=== PATIENT | male | born 1945 | race Caucasian/White ===

== ENCOUNTER → 2016-12-28 | Outpatient (CLI) | payer MEDICARE, OTHER ==
--- NOTE | 2016-12-28 12:10 | RADRPT ---
PROCEDURE: XR pelvis/right hip. CLINICAL INDICATION: Hip pain TECHNIQUE: AP pelvis/AP and lateral right hip views performed. COMPARISON: 08/17/2014 FINDINGS: There is a right total hip replacement. There is no evidence of loosening of the prosthesis. No hard hillman failure is identified. There is severe left hip osteoarthrosis. This is associated with joint space narrowing, subchondral sclerosis, subchondral cyst formation and osteophytosis. There is normal osseous mineralization. N o fractures or osseous lesions are identified. The soft tissues are unremarkable. IMPRESSION: Right total hip replacement. Severe left hip osteoarthrosis. RPTAT: [facility] .Peter Jj MD, MD Date Time Electronically viewed and signed by .Peter Jj MD, on 12/28/2016 12:10 .B/
== END | disposition home or self-care (01) ==
LOC: HKI 11:25
PROVIDERS: ATTEND Orthopaedic Surgery
DX: T84.090A Other mechanical complication of internal right hip prosthesis, initial encounter (principal); Z96.641 Presence of right artificial hip joint
CPT/HCPCS: 73502; G0463

== ENCOUNTER → 2017-02-19 | Outpatient (CLI) | payer MEDICARE, BC | END | disposition home or self-care (01) | LOC: HKI 13:33 | PROVIDERS: ATTEND Orthopaedic Surgery | DX: T84.090D Other mechanical complication of internal right hip prosthesis, subsequent encounter (principal); Y83.8 Other surgical procedures as the cause of abnormal reaction of the patient, or of later complication, without mention of misadventure at the time of the procedure; I10 Essential (primary) hypertension; E78.00 Pure hypercholesterolemia, unspecified; Z47.1 Aftercare following joint replacement surgery | CPT/HCPCS: G0463 ==